=== PATIENT | male | born 1940 | race Caucasian/White ===

== ENCOUNTER 2018-10-18 08:56 | Inpatient (IN) ==
[2018-10-18] MEDS ORDERED: NORMAL SALINE 1,000 ML IV ONE ×3 (09:13→18:53)
[2018-10-18 09:30] LABS: Hematocrit 40.7 % (42.0-52.0); Hemoglobin 12.6 gm/dL (13.5-18.0); Mean Cell Volume 87.9 fl (78-100); Mean Corpuscular Hemoglobin 27.2 pg (27-31); Mean Platelet Volume 8.8 fl (8-11.3); Platelet Count 407 K/mm3 (150-450); Red Blood Count 4.63 M/mm3 (4.7-6.0); Red Cell Distribution Width 14.5 % (11.5-14.0); White Blood Count 27.4 K/mm3 (4.0-10.5)
--- NOTE | 2018-10-18 09:35 | ERNOTE ---
Abdominal HPI - General Chief Complaint: Abdominal Pain Time Seen by Provider: 10/18/18 08:58 Source: patient Exam Limitations: no limitations - Immun/Allergies/Home Medications Immunizatons: IMMUNIZATION HX Immunizations Up to Date Yes History of Influenza Vaccine Yes Hx Pneumococcal Vaccination Yes Allergies/Adverse Reactions: Allergies No Known Allergies Allergy (Verified 10/18/18 09:02) Home Medications: HOME MEDICATIONS albuterol sulfate HFA 90 mcg/actuation aerosol inhaler 2 puff IH Q4H PRN g 09/12/17 [Last Taken Unknown] blood sugar diagnostic strips See Dose Instructions .ROUTE .MEDSUPPLY #20 ea 09/12/17 [Last Taken Unknown] budesonide 0.5 mg/2 mL suspension for nebulization 2 ml IH Q12H 09/12/17 [Last Taken Unknown] furosemide 20 mg tablet 20 mg PO .COMPLEX 09/12/17 [Last Taken Unknown] ipratropium-albuterol 0.5 mg-3 mg(2.5 mg base)/3 mL nebulization soln 3 ml IH .COMPLEX 09/12/17 [Last Taken Unknown] lisinopril 2.5 mg tablet 2.5 mg PO DAILY 09/12/17 [Last Taken Unknown] potassium chloride ER 10 mEq capsule,extended release 10 meq PO .COMPLEX 09/12/17 [Last Taken Unknown] sodium chloride 1 gram tablet 1 tab PO BID tab 09/12/17 [Last Taken Unknown] tiotropium 2.5 mcg-olodaterol 2.5 mcg/actuation mist for inhalation 2 puff IH DAILY 09/12/17 [Last Taken Unknown] Azithromycin [Zithromax Tri-Renan] 500 mg PO MOTUWETHFR 09/25/17 [Last Taken Unknown] Montelukast Sodium [Singulair] 10 mg PO HS 09/25/17 [Last Taken Unknown] omeprazole 40 mg capsule,delayed release 40 mg PO DAILY #90 cap 01/23/18 [Last Taken Unknown] O2 See Dose Instructions .ROUTE .MEDSUPPLY #1 ea 02/15/18 [Last Taken Unknown] albuterol sulfate 2.5 mg/3 mL (0.083 %) solution for nebulization 2.5 mg IH QID 02/15/18 [Last Taken Unknown] cetirizine 10 mg tablet 5 mg PO DAILY 02/15/18 [Last Taken Unknown] ergocalciferol (vitamin D2) 50,000 unit capsule 50,000 unit PO QWEEK cap 02/15/18 [Last Taken Unknown] fluticasone propionate 50 mcg/actuation nasal spray,suspension 1 spray RADHA DAILY PRN #16 g 02/15/18 [Last Taken Unknown] guaifenesin ER 600 mg tablet, extended release 12 hr 1,200 mg PO Q12H PRN tab 02/15/18 [Last Taken Unknown] prednisone 1 mg tablet 2 mg PO DAILY tab 02/15/18 [Last Taken Unknown] prednisone 5 mg tablet 5 mg PO DAILY tab 02/15/18 [Last Taken Unknown] sodium chloride 7 % for nebulization 7 % .ROUTE ml 02/15/18 [Last Taken Unknown] metformin 500 mg tablet 500 mg PO BID #180 tab 02/27/18 [Last Taken Unknown] lancets See Dose Instructions .ROUTE .MEDSUPPLY #200 ea 05/30/18 [Last Taken Unknown] - History of Present Illness Narrative: Patient states that he has had chronic back pain for a while and left flank pain for a couple of weeks. He saw his PCP and had imaging of his back and gallbladder and is wondering about the results. During the night (02:00?) his left flank pain got acutely worse, denies chest pain or shortness of breath, 'just doesn't feel good', light headed and sweaty He has a history of COPD, wears O2 at night only, has not taken any of his morning meds yet Quality: severe, aching, cramping, dullness, sharpness, stabbing, throbbing Activities at Onset: sleep Associated Symptoms: Present: shortness of breath. Absent: fever/chills Prior Treatment: Absent: recently seen, currently on antibiotics Review of Systems - Review of Systems Constitutional: Present: malaise. Absent: recent illness, fever, chills ENT: Absent: nose congestion, nasal drainage, sore throat Respiratory: Absent: shortness of breath, cough Cardiology: Absent: chest pain Gastrointestinal/Abdominal: Present: See HPI, abdominal pain. 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 Cor pulmonale Onset Date: Unknown Diabetes Onset Date: Unknown Type 2 Diverticulosis of colon Onset Date: Unknown Gout Onset Date: Unknown H/O gastroesophageal reflux (GERD) Onset Date: Unknown Hyperlipidemia Onset Date: Unknown Hypertension Onset Date: ~04/2006 Impingement syndrome of left shoulder Onset Date: ~03/2012 Loose body in knee, right knee Onset Date: ~08/2012 Lung nodule Onset Date: Unknown 3mm Obesity Onset Date: Unknown Osteoarthritis Onset Date: Unknown Restless legs Onset Date: ~11/2005 Rotator cuff tear, left Onset Date: ~03/2012 Partial Trochanteric bursitis, unspecified hip Onset Date: 08/29/12 12/15/11 Wheezing Onset Date: 04/21/14 oxygen-dependent Onset Date: Unknown Nocturnal oxygen 3L Surgical History: Surgical History (Updated 09/12/17 @ 11:35 by Susan aLtif RN) Abnormal colonoscopy Onset Date: 08/29/13 Bagan-tubular adenoma & hyperplastic polyp. Diverticulosis, external hemorrhoids. Recheck in 5-10 years. MARISSA Onset Date: 07/13/11 x2 H/O esophagogastroduodenoscopy Onset Date: 08/28/13 Bagan-Clotest negative. Mild chronic gastric inflammation. H/O prostate biopsy Onset Date: Unknown x2-negative History of arthroscopic knee surgery Onset Date: 08/17/12 right-removal of loose body, chondral debridement, [facility] [place] History of arthroscopic surgery of shoulder Onset Date: 05/11/12 Left-debridement of rotator cuff, SAD History of tonsillectomy Onset Date: ~1947 Hx of cataract surgery Onset Date: 01/11/16 right eye Hx of hemorrhoidectomy Onset Date: ~1969 [place] Family History: Family History (Last Reviewed 10/18/18 @ 09:43 by Sindhu Valencia RN) Father Arthritis Myocardial infarction Cancer Prostate Mother , 87 Parkinson's disease Social History: (Last Reviewed 10/18/18 @ 09:43 by Sindhu Valencia RN) Social History: Marital status: Single current occupational status: retired Highest education level completed: 11th grade Service: No Tobacco: Smoking Status: Former smoker how long ago did patient quit smokin Alcohol: alcohol intake: current alcohol intake frequency: 0-2 drinks per day details: use to drink heavily in the past, drinks 2 beers on a daily basis Dietary Habits: caffeine: Yes caffeine comment: occ. Physical Exam - Physical Exam General Appearance: Present: wd/wn, alert, no apparent distress, anxious Head Exam: Present: normal inspection Eye Exam: Normal inspection: bilateral Respiratory: Present: no respiratory distress, lungs clear, decreased breath s ounds, expiration (prolonged) Cardiovascular/Chest: Present: no murmur, tachycardia Gastrointestinal/Abdominal: Present: normal bowel sounds, nondistended, soft, rebound - LLQ. Absent: guarding Back Exam: Present: no vertebral tenderness Extremity Exam: Present: no edema Neurological Exam: Present: alert, oriented, normal mood/affect Skin Exam: Present: normal color, diaphoresis Progress - Results and Orders Patient's Lab Results:: I have reviewed the patient's lab results. - Vital Signs Patient's Vital Signs:: I have reviewed the patient's vital signs. Vital Signs: Vital Signs 10/18/18 08:59 Temperature 36.2 C Pulse Rate 117 H Respiratory Rate 18 Blood Pressure 97/53 O2 Sat by Pulse Oximetry 85 L - EKG EKG #1 EKG: NSR - sinus tachy, nonspecific ST T wave changes EKG read: Interp. by me - X-Ray X-Ray #1 X-Ray: chest - left sided multifocal pneumonia Interpretation: Reviewed by me - CT/Ultrasound CT/Ultrasound Narrative: CTA: IMPRESSION: 1. No aortic pathology detected. 2. Left-sided multifocal pneumonia 3. Additional comments and findings as above - Progress/Reassessment Chief Complaint: Abdominal Pain Progress Note-Subjective: 10/18/18 10:01 discussed code status with patient, patient wants all interventions 'unless I am going to be a vegetable', when asked about CPR ad intubation answers: 'at least once' BP continues to be low in spite of fluids 10/18/18 10:10 discussed CTA with radiologist, no aortic leak, but left sided pneumonia 10/18/18 11:09 blood pressure improved message to Dr Herr 10/18/18 11:16 BP systolic staying over [address] Herr, okay to admit,add vancomycin, cefipime, get ABG 10/18/18 11:20 updated patient on family Departure Clinical Impression: Septic shock Pneumonia Qualifiers: Pneumonia type: due to unspecified organism Laterality: left Lung location: unspecified part of lung Qualified Code(s): J18.9 - Pneumonia, unspecified organism - Departure Disposition: Still a patient Condition: Fair
[2018-10-18 09:47] LABS: ALT 6 U/L (19-67); AST 10 U/L (0-48); Albumin * 3.3 gm/dl (3.4-5.0); Alkaline Phosphatase * 53 U/L (50-170); Amylase * 24 U/L (25-115); Anion Gap 13.2 mmol/L (6.8-13.8); Bilirubin, Total 0.6 mg/dL (0.0-1.1); Blood Urea Nitrogen 13 mg/dL (6-23); Ca. Corrected For Albumin 8.9 mg/dL (8.4-10.2); Calcium * 8.7 mg/dL (7.9-10.9); Carbon Dioxide 28.4 mmol/L (24-32.6); Chloride 99 mmol/L (97-106); Glucose * 168 mg/dL (70-110); Lipase 95 U/L (73-393); Potassium 3.6 mmol/L (3.4-4.6); Sodium 137 mmol/L (132-142); Total Protein 6.1 gm/dL (6.2-8.2); Troponin I Less than 0.017 ng/mL (0.00-0.10)
[2018-10-18 09:53] LABS: Total Cells Counted 100
[2018-10-18 09:56] LABS: Atypical (Reactive) Lymph 1 % (0-2); Band 11 % (0-2.0); Immature Granulocyte 1 (0-1); Lymphocyte 8 % (20-51); Monocyte 1 % (0-9); Neutrophil 78 % (42-75); Neutrophil # 21.4 K/mm3 (1.3-6.0); Platelet Estimate Normal (NORMAL); RBC Morphology Normal (NORMAL)
[2018-10-18] MEDS ORDERED: NOREPINEPHRINE BITARTRATE 4 MG in DEXTROSE 5 % IN WATER 496 ML IV PRN ×2 (10:02)
[2018-10-18] MEDS ORDERED: cefTRIAXone SODIUM 1,000 MG/100 ML BAG IV ONE (10:10)
[2018-10-18] MEDS: NORMAL SALINE 1,000 ML IV PRN ×2 (11:02→12:16)
[2018-10-18] MEDS ORDERED: METHYLPREDNISOLONE SOD SUCC/PF 40 MG/ML VIAL IV ONE (11:14)
[2018-10-18] MEDS ORDERED: CEFEPIME HCL 1 GM/100 ML BAG IV ONE (11:22)
[2018-10-18] MEDS ORDERED: VANCOMYCIN HCL 1 GM in DEXTROSE 5 % IN WATER 250 ML IV ONE ×2 (11:27)
[2018-10-18] MEDS: PANTOPRAZOLE SODIUM 40 MG in NORMAL SALINE 100 ML IV SCH (12:37)
[2018-10-18] MEDS: CEFEPIME HCL 1 GM in DEXTROSE 5 % IN WATER 100 ML IV SCH ×4 (12:40→22:50)
[2018-10-18] MEDS ORDERED: AZITHROMYCIN 250 MG TABLET PO ONE (13:13)
--- NOTE | 2018-10-18 13:13 | HP ---
Chief Complaint - Chief Complaint Date of Service: 10/18/18 Time of Service: 12:27 Chief Complaint: shortness of breath History of Present Illness: Alejandro Diaz is a 78-year-old white male with past medical history of COPD, Hypertension, diabetes mellitus, Tate's esophagus who was admitted on 10/18/2018 because of increasing shortness of breath. The patient woke up early this morning around 2 AM because of shortness of breath and left flank pain associated with shakiness and diaphoresis. 3 weeks ago patient was seen in the office because of low back pain with radiation to his left flank area and x-ray of his lumbosacral spine showed degenerative disc disease with gallbladder stone. An ultrasound of his gallbladder showed no evidence of cholelithiasis or acute cholecystitis. In the emergency room he was found to be hypotensive and hypoxic. He was placed on nasal cannula with 3 L and IV fluid boluses were started. A CT angiogram was done which showed no evidence of aneurysm. His white blood cell count was elevated at 27,000 and his chest x-ray showed multifocal pneumonia left lung field. The patient was given 1 dose of IV Rocephin after blood cultures were sent. I ordered IV cefepime and 1 dose of Vanco for now. Patient was admitted to the floor for further evaluation and treatment. 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 Cor pulmonale Onset Date: Unknown Diabetes Onset Date: Unknown Type 2 Diverticulosis of colon Onset Date: Unknown Gout Onset Date: Unknown H/O gastroesophageal reflux (GERD) Onset Date: Unknown Hyperlipidemia Onset Date: Unknown Hypertension Onset Date: ~04/2006 Impingement syndrome of left shoulder Onset Date: ~03/2012 Loose body in knee, right knee Onset Date: ~08/2012 Lung nodule Onset Date: Unknown 3mm Obesity Onset Date: Unknown Osteoarthritis Onset Date: Unknown Restless legs Onset Date: ~11/2005 Rotator cuff tear, left Onset Date: ~03/2012 Partial Trochanteric bursitis, unspecified hip Onset Date: 08/29/12 12/15/11 Wheezing Onset Date: 04/21/14 oxygen-dependent Onset Date: Unknown Nocturnal oxygen 3L Surgical History: Surgical History (Updated 10/18/18 @ 13:12 by Amanda Herr MD) Abnormal colonoscopy Onset Date: 08/29/13 Bagan-tubular adenoma & hyperplastic polyp. Diverticulosis, external hemorrhoids. Recheck in 5-10 years. MARISSA Onset Date: 07/13/11 x2 H/O esophagogastroduodenoscopy Onset Date: 08/28/13 Bagan-Clotest negative. Mild chronic gastric inflammation. H/O prostate biopsy Onset Date: Unknown x2-negative History of arthroscopic knee surgery Onset Date: 08/17/12 right-removal of loose body, chondral debridement, [facility] History of arthroscopic surgery of shoulder Onset Date: 05/11/12 Left-debridement of rotator cuff, SAD History of tonsillectomy Onset Date: ~1946 Hx of cataract surgery Onset Date: 01/11/16 right eye Hx of hemorrhoidectomy Onset Date: ~1969 [place] Family History: Family History (Last Reviewed 10/18/18 @ 15:10 by Bettye Broderick RN) Father Arthritis Myocardial infarction Cancer Prostate Mother , 87 Parkinson's disease Social History: (Last Reviewed 10/18/18 @ 09:43 by Sindhu Valencia RN) Social History: Marital status: Single current occupational status: retired Highest education level completed: 11th grade Service: No Tobacco: Smoking Status: Former smoker how long ago did patient quit smokin Alcohol: alcohol intake: current alcohol intake frequency: 0-2 drinks per day details: use to drink heavily in the past, drinks 2 beers on a daily basis Dietary Habits: caffeine: Yes caffeine comment: occ. Review Of Systems (GEN) - Review of Systems Generalized/Overall Review: Present: Weakness, Chills, Diaphoresis. Absent: Fever EENTM: Absent: Blurred Vision Respiratory: Present: Shortness of Breath. Absent: Cough, Orthopnea, Wheezing Cardiac: Present: Chest Pain. Absent: Edema, Palpitations Abdominal: Absent: Nausea, Vomiting, Abdominal Pain Genitourinary: Absent: Urgency, Frequency Musculoskeletal: Present: Back Pain. Absent: Joint Pain Neurological: Absent: Headache Skin: Absent: Lesions, Rash Misc: All systems neg except as marked Immunizations: IMMUNIZATION HX Immunizations Up to Date Yes History of Influenza Vaccine Yes Hx Pneumococcal Vaccination Yes Allergies/Adverse Reactions: Allergies Allergy/AdvReac Type Severity Reaction Status Date / Time No Known Allergies Allergy Verified 10/18/18 09:02 Home Medications: HOME MEDICATIONS albuterol sulfate HFA 90 mcg/actuation aerosol inhaler 2 puff IH Q4H PRN g 09/12/17 [Last Taken Unknown] blood sugar diagnostic strips See Dose Instructions .ROUTE .MEDSUPPLY #20 ea 09/12/17 [Last Taken Unknown] budesonide 0.5 mg/2 mL suspension for nebulization 2 ml IH Q12H 09/12/17 [Last Taken Unknown] furosemide 20 mg tablet 20 mg PO Q48H 09/12/17 [Last Taken Unknown] ipratropium-albuterol 0.5 mg-3 mg(2.5 mg base)/3 mL nebulization soln 3 ml IH QID PRN 09/12/17 [Last Taken Unknown] lisinopril 2.5 mg tablet 2.5 mg PO DAILY 09/12/17 [Last Taken Unknown] sodium chloride 1 gram tablet 1 tab PO BID tab 09/12/17 [Last Taken Unknown] tiotropium 2.5 mcg-olodaterol 2.5 mcg/actuation mist for inhalation 2 puff IH DAILY 09/12/17 [Last Taken Unknown] Montelukast Sodium [Singulair] 10 mg PO HS 09/25/17 [Last Taken Unknown] omeprazole 40 mg capsule,delayed release 40 mg PO DAILY #90 cap 01/23/18 [Last Taken Unknown] O2 See Dose Instructions .ROUTE .MEDSUPPLY #1 ea 02/15/18 [Last Taken Unknown] albuterol sulfate 2.5 mg/3 mL (0.083 %) solution for nebulization 2.5 mg IH QID 02/15/18 [Last Taken Unknown] cetirizine 10 mg tablet 10 mg PO DAILY 02/15/18 [Last Taken Unknown] ergocalciferol (vitamin D2) 50,000 unit capsule 50,000 unit PO QWEEK cap 02/15/18 [Last Taken Unknown] fluticasone propionate 50 mcg/actuation nasal spray,suspension 1 spray RADHA DAILY PRN #16 g 02/15/18 [Last Taken Unknown] guaifenesin ER 600 mg tablet, extended release 12 hr 1,200 mg PO Q12H PRN tab 02/15/18 [Last Taken Unknown] prednisone 1 mg tablet 2 mg PO DAILY tab 02/15/18 [Last Taken Unknown] prednisone 5 mg tablet 5 mg PO DAILY tab 02/15/18 [Last Taken Unknown] sodium chloride 7 % for nebulization 4 ml NEB BID ml 02/15/18 [Last Taken Unknown] lancets See Dose Instructions .ROUTE .MEDSUPPLY #200 ea 05/30/18 [Last Taken Unknown] Potassium Chloride [Klor-Con 10] 10 meq PO Q48H 10/18/18 [Last Taken Unknown] metFORMIN HCL [Metformin HCl] 500 mg PO BID 10/18/18 [Last Taken Unknown] Exam - Exam Vital Signs: Vital Signs - Last Taken Temp 36.2 C 10/18/18 08:59 Pulse 115 H 10/18/18 11:00 Resp 25 H 10/18/18 11:00 BP 97/46 10/18/18 11:00 Pulse Ox 100 10/18/18 11:00 Constitutional: Present: Alert, Oriented x3, Cooperative, Mild distress, Elderly ENT Exam: Present: hearing grossly normal Eye Exam: bilateral eye: normal inspection, PERRL, EOMI Neck: Present: supple. Absent: lymphadenopathy (R), lymphadenopathy (L) Respiratory: Present: decreased breath sounds, wheezing - occasional. Absent: crackles, rales Cardiovascular/Chest: Present: regular rate, rhythm, no JVD, no murmur Abdomen: Present: Normal bowel sounds, soft, nontender, nondistended Extremity: Present: no pedal edema, no calf tenderness Diagnostic Studies: Abnormal Lab Results 10/18/18 10/18/18 10/18/18 Range/Units 09:22 09:22 09:22 WBC 27.4 H (4.0-10.5) K/mm3 RBC 4.63 L (4.7-6.0) M/mm3 Hgb 12.6 L (13.5-18.0) gm/dL Hct 40.7 L (42.0-52.0) % MCHC 31.0 L (32-36) g/dl RDW 14.5 H (11.5-14.0) % Neutrophils % (Manual) 78 H (42-75) % Band Neuts % (Manual) 11 H (0-2.0) % Lymphocytes % (Manual) 8 L (20-51) % Neutrophils # (Manual) 21.4 H (1.3-6.0) K/mm3 Base Excess (-2.0-3.0) mmol/L ABG pH (7.35-7.45) Random Glucose 168 H (70-110) mg/dL Lactic Acid, Venous 3.5 H* (0.4-2.0) mmol/L ALT 6 L (19-67) U/L Total Protein 6.1 L (6.2-8.2) gm/dL Albumin 3.3 L (3.4-5.0) gm/dl Amylase 24 L (25-115) U/L 10/18/18 Range/Units 12:13 WBC (4.0-10.5) K/mm3 RBC (4.7-6.0) M/mm3 Hgb (13.5-18.0) gm/dL Hct (42.0-52.0) % MCHC (32-36) g/dl RDW (11.5-14.0) % Neutrophils % (Manual) (42-75) % Band Neuts % (Manual) (0-2.0) % Lymphocytes % (Manual) (20-51) % Neutrophils # (Manual) (1.3-6.0) K/mm3 Base Excess -5.5 L (-2.0-3.0) mmol/L ABG pH 7.28 L (7.35-7.45) Random Glucose (70-110) mg/dL Lactic Acid, Venous (0.4-2.0) mmol/L ALT (19-67) U/L Total Protein (6.2-8.2) gm/dL Albumin (3.4-5.0) gm/dl Amylase (25-115) U/L Laboratory Results WBC 27.4 K/mm3 (4.0-10.5) H 10/18/18 09:22 RBC 4.63 M/mm3 (4.7-6.0) L 10/18/18 09:22 Hgb 12.6 gm/dL (13.5-18.0) L 10/18/18 09:22 Hct 40.7 % (42.0-52.0) L 10/18/18 09:22 MCV 87.9 fl (78-100) 10/18/18 09:22 MCH 27.2 pg (27-31) 10/18/18 09:22 MCHC 31.0 g/dl (32-36) L 10/18/18 09:22 RDW 14.5 % (11.5-14.0) H 10/18/18 09:22 Plt Count 407 K/mm3 (150-450) 10/18/18 09:22 MPV 8.8 fl (8-11.3) 10/18/18 09:22 78 % (42-75) H 10/18/18 09:22 Band Neuts % (Manual) 11 % (0-2.0) H 10/18/18 09:22 8 % (20-51) L 10/18/18 09:22 1 % (0-9) 10/18/18 09:22 1 (0-1) 10/18/18 09:22 21.4 K/mm3 (1.3-6.0) H 10/18/18 09:22 2.2 k/mm3 (1.5-3.5) 10/18/18 09:22 0.3 k/mm3 (0.0-1.0) 10/18/18 09:22 Atypic/Reactive Lymphs 1 % (0-2) 10/18/18 09:22 Normal (NORMAL) 10/18/18 09:22 RBC Morphology Normal (NORMAL) 10/18/18 09:22 pCO2 46.3 mmHg (35.0-48.0) 10/18/18 12:13 pO2 91.2 mmHg (83.0-108.0) 10/18/18 12:13 HCO3 21.2 mmol/L (21.0-28.0) 10/18/18 12:13 Total CO2 22.6 mmol/L (19.0-24.0) 10/18/18 12:13 Base Excess -5.5 mmol/L (-2.0-3.0) L 10/18/18 12:13 ABG pH 7.28 (7.35-7.45) L 10/18/18 12:13 ABG O2 Sat (Measured) 96.0 % (94.0-98.0) 10/18/18 12:13 Sodium 137 mmol/L (132-142) 10/18/18 09:22 138 mmol/L (130-142) 10/18/18 09:22 Potassium 3.6 mmol/L (3.4-4.6) 10/18/18 09:22 Chloride 99 mmol/L (97-106) 10/18/18 09:22 Carbon Dioxide 28.4 mmol/L (24-32.6) 10/18/18 09:22 13.2 mmol/L (6.8-13.8) 10/18/18 09:22 BUN 13 mg/dL (6-23) 10/18/18 09:22 1.18 mg/dL (0.4-1.4) 10/18/18 09:22 Est GFR (Non-Af Amer) 64 mL/min (60-130) D 10/18/18 09:22 11.0 (9.0-21.6) 10/18/18 09:22 168 mg/dL (70-110) H 10/18/18 09:22 3.5 mmol/L (0.4-2.0) H* 10/18/18 09:22 Calcium 8.7 mg/dL (7.9-10.9) 10/18/18 09:22 Calcium Adj for Albumin 8.9 mg/dL (8.4-10.2) 10/18/18 09:22 0.6 mg/dL (0.0-1.1) 10/18/18 09:22 AST 10 U/L (0-48) 10/18/18 09:22 ALT 6 U/L (19-67) L 10/18/18 09:22 53 U/L (50-170) 10/18/18 09:22 Less than 0.017 ng/mL (0.00-0.10) 10/18/18 09:22 6.1 gm/dL (6.2-8.2) L 10/18/18 09:22 3.3 gm/dl (3.4-5.0) L 10/18/18 09:22 Amylase 24 U/L (25-115) L 10/18/18 09:22 95 U/L (73-393) 10/18/18 09:22 Assessment/Plan - Narrative Narrative: We will continue with his IV antibiotics and add macrolide for coverage of atypicals. Will have respiratory therapy do breathing treatments as needed. Continue with oxygen and taper when able to keep oxygen saturation above 88%. We will do DVT prophylaxis and continue his home medications. Will hold his metformin for at least 48 hours as he just had a CT angiogram. - Assessment/Plan (1) Septic shock Assessment: Continue with IV fluids and IV antibiotics. His blood pressure now is in the low 100s. Problem: Acute (2) Pneumonia Assessment: multifocal. Continue with IV cefepime, Vanco and will add azithromycin. if with no improvement , consider aspiration and will change cefepime to meropenem. Problem: Acute Qualifiers: Pneumonia type: due to unspecified organism Laterality: left Lung location: unspecified part of lung Qualified Code(s): J18.9 - Pneumonia, unspecified organism (3) Leukocytosis Assessment: Infectious. Continue with IV antibiotics. Follow-up cultures. Problem: Acute (4) Lactic acidosis Assessment: Likely due to sepsis. Continue IV antibiotics and IV fluids. Problem: Acute (5) Abnormal arterial blood gases Assessment: His ABG showing acute respiratory acidosis with metabolic acidosis. Considering he has lactic acidosis I was expecting more of a high anion gap metabolic acidosis but his anion gap was normal. 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 There is no history of recent diarrhea on his history and physical. If we want to pursue this further we will need to order for a urine for anion gap . Problem: Acute (6) Chronic obstructive lung disease Assessment: Continue with his inhalers. Problem: Chronic (7) Low back pain Problem: Chronic (8) Barretts esophagus Problem: Chronic Qualifiers: (9) Hyperlipidemia Problem: Chronic Qualifiers: (10) Diabetes mellitus Problem: Chronic Qualifiers:
[2018-10-18 13:38] LABS: Urine Bilirubin Negative (NEGATIVE); Urine Blood Negative /ul (NEGATIVE); Urine Ketone Negative (NEGATIVE); Urine Nitrite Negative (NEGATIVE); Urine Protein Negative (NEGATIVE); Urine Specific Gravity <=1.005 SP.GR. (1.005-1.030); Urine Urobilinogen Normal (NORMAL)
[2018-10-18 13:44] LABS: Urine Appearance Clear (CLEAR); Urine Bacteria None Seen; Urine Color Yellow; Urine RBC None Seen /hpf (0-5); Urine WBC None Seen /hpf (0-5)
[2018-10-18 13:54] LABS: Cocaine Ur Negative (NEGATIVE); Urine Barbiturate Negative (NEGATIVE); Urine Benzodiazepines Negative (NEGATIVE); Urine Opiates Negative (NEGATIVE); Urine PCP Negative (NEGATIVE); Urine THC Negative (NEGATIVE)
[2018-10-18] MEDS: VANCOMYCIN HCL 1 GM in DEXTROSE 5 % IN WATER 250 ML IV SCH ×4 (13:58→23:54)
[2018-10-18] MEDS: ACETAMINOPHEN 325 MG TABLET PO PRN ×2 (14:08→18:22)
[2018-10-18] MEDS: ALBUTEROL SULFATE/IPRATROPIUM 3 ML NEBU IH SCH ×2 (14:11→18:05)
[2018-10-18] MEDS: BUDESONIDE 0.5 MG/2 ML VIAL.NEB IH SCH ×2 (14:13→18:06)
[2018-10-18] MEDS ORDERED: NON-FORMULARY 1 DOSE DOSE (Albuterol Sulfate 2.5 MG) IH SCH (17:00)
[2018-10-18] MEDS: ENOXAPARIN SODIUM 40 MG/0.4 ML SYRG SC SCH (17:01)
[2018-10-18] MEDS: INSULIN LISPRO 100 UNITS/ML VIAL SC SCH ×2 (17:04→20:24)
[2018-10-18] MEDS: INSULIN GLARGINE,HUM.REC.ANLOG 100 UNITS/ML VIAL SC SCH (20:26)
[2018-10-18] MEDS: MONTELUKAST SODIUM 10 MG TABLET PO SCH (20:28)
[2018-10-18] MEDS: SACCHAROMYCES BOULARDII 250 MG CAPSULE PO SCH (20:28)
[2018-10-19] MEDS: ACETAMINOPHEN 325 MG TABLET PO PRN ×3 (00:06→23:36)
[2018-10-19] MEDS: NORMAL SALINE 1,000 ML IV PRN ×3 (03:03→22:44)
[2018-10-19] MEDS: FLUTICASONE PROPIONATE 120 SPRAY INHALER NS PRN (03:09)
[2018-10-19 05:32] LABS: Hemoglobin 9.8 gm/dL (13.5-18.0); Mean Cell Volume 88.1 fl (78-100); Mean Corpuscular Hemoglobin 27.8 pg (27-31); Mean Corpuscular Hgb Conc 31.6 g/dl (32-36); Mean Platelet Volume 8.9 fl (8-11.3); Platelet Count 291 K/mm3 (150-450); Red Blood Count 3.52 M/mm3 (4.7-6.0); Red Cell Distribution Width 14.7 % (11.5-14.0); White Blood Count 27.2 K/mm3 (4.0-10.5)
[2018-10-19 05:36] LABS: Total Cells Counted 100
[2018-10-19 05:39] LABS: Anion Gap 13.3 mmol/L (6.8-13.8); BUN/Creatinine Ratio 15.9 (9.0-21.6); Calcium * 7.8 mg/dL (7.9-10.9); Carbon Dioxide 25.9 mmol/L (24-32.6); Estimated Creat Clear 63.4; Potassium 4.2 mmol/L (3.4-4.6)
[2018-10-19 05:56] LABS: Band 5 % (0-2.0); Immature Granulocyte 2 (0-1); Lymphocyte 3 % (20-51); Monocyte 2 % (0-9); Neutrophil 88 % (42-75); Neutrophil # 23.9 K/mm3 (1.3-6.0); Platelet Estimate Normal (NORMAL); RBC Morphology Normal (NORMAL)
[2018-10-19] MEDS: ALBUTEROL SULFATE/IPRATROPIUM 3 ML NEBU IH SCH ×4 (06:01→18:05)
[2018-10-19] MEDS: BUDESONIDE 0.5 MG/2 ML VIAL.NEB IH SCH ×2 (06:08→18:05)
[2018-10-19] MEDS: INSULIN LISPRO 100 UNITS/ML VIAL SC SCH ×4 (07:04→20:54)
--- NOTE | 2018-10-19 08:34 | PN ---
Subjective - Date and Time Seen Date: 10/19/18 Time: 08:23 Subjective Narrative: patient says he feels beter than yesterday. WBC down to 27.2 from 27.4 but clinically feeling better. afebrile Tmax 37. Objective - Review of Systems Generalized/Overall Review: Reports: Weight gain. Denies: Chills, Fever EENTM: Denies: Blurred Vision, Throat Swelling Respiratory: Reports: Cough, Shortness of Breath, Wheezing Cardiac: Reports: Chest Pain - with deep breathing/coughing Abdominal: Denies: Nausea, Vomiting, Abdominal Pain Genitourinary Symptoms: Denies: Urgency, Frequency Musculoskeletal Complaints: Reports: Back Pain. Denies: Joint Pain Neurological: Denies: Headache Skin: Denies: Lesions, Rash Endocrine: Denies: Intolerance to Cold, Intolerance to Heat Misc: All systems neg except as marked - Vitals Vitals: Last Vital Signs Temp 36.8 C 10/19/18 06:29 Pulse 85 10/19/18 06:29 Resp 16 10/19/18 06:29 BP 114/49 10/19/18 06:29 Pulse Ox 94 10/19/18 06:29 - Abnormal Lab Findings Abnormal Lab Findings: Abnormal Lab Results 10/18/18 10/18/18 10/18/18 Range/Units 09:22 09:22 09:22 WBC 27.4 H (4.0-10.5) K/mm3 RBC 4.63 L (4.7-6.0) M/mm3 Hgb 12.6 L (13.5-18.0) gm/dL Hct 40.7 L (42.0-52.0) % MCHC 31.0 L (32-36) g/dl RDW 14.5 H (11.5-14.0) % Neutrophils % (Manual) 78 H (42-75) % Band Neuts % (Manual) 11 H (0-2.0) % Lymphocytes % (Manual) 8 L (20-51) % Immature Granulocytes (0-1) Neutrophils # (Manual) 21.4 H (1.3-6.0) K/mm3 Lymphocytes # (Manual) (1.5-3.5) k/mm3 Base Excess (-2.0-3.0) mmol/L ABG pH (7.35-7.45) Random Glucose 168 H (70-110) mg/dL Lactic Acid, Venous 3.5 H* (0.4-2.0) mmol/L Calcium (7.9-10.9) mg/dL ALT 6 L (19-67) U/L Total Protein 6.1 L (6.2-8.2) gm/dL Albumin 3.3 L (3.4-5.0) gm/dl Amylase 24 L (25-115) U/L 10/18/18 10/18/18 10/19/18 Range/Units 12: 12: 05:10 WBC 27.2 H (4.0-10.5) K/mm3 RBC 3.52 L (4.7-6.0) M/mm3 Hgb 9.8 L (13.5-18.0) gm/dL Hct 31.0 L (42.0-52.0) % MCHC 31.6 L (32-36) g/dl RDW 14.7 H (11.5-14.0) % Neutrophils % (Manual) 88 H (42-75) % Band Neuts % (Manual) 5 H (0-2.0) % Lymphocytes % (Manual) 3 L (20-51) % Immature Granulocytes 2 H (0-1) Neutrophils # (Manual) 23.9 H (1.3-6.0) K/mm3 Lymphocytes # (Manual) 0.8 L (1.5-3.5) k/mm3 Base Excess -5.5 L (-2.0-3.0) mmol/L ABG pH 7.28 L (7.35-7.45) Random Glucose (70-110) mg/dL Lactic Acid, Venous 4.4 H* (0.4-2.0) mmol/L Calcium (7.9-10.9) mg/dL ALT (19-67) U/L Total Protein (6.2-8.2) gm/dL Albumin (3.4-5.0) gm/dl Amylase (25-115) U/L 10/19/18 Range/Units 05:10 WBC (4.0-10.5) K/mm3 RBC (4.7-6.0) M/mm3 Hgb (13.5-18.0) gm/dL Hct (42.0-52.0) % MCHC (32-36) g/dl RDW (11.5-14.0) % Neutrophils % (Manual) (42-75) % Band Neuts % (Manual) (0-2.0) % Lymphocytes % (Manual) (20-51) % Immature Granulocytes (0-1) Neutrophils # (Manual) (1.3-6.0) K/mm3 Lymphocytes # (Manual) (1.5-3.5) k/mm3 Base Excess (-2.0-3.0) mmol/L ABG pH (7.35-7.45) Random Glucose 120 H (70-110) mg/dL Lactic Acid, Venous (0.4-2.0) mmol/L Calcium 7.8 L (7.9-10.9) mg/dL ALT (19-67) U/L Total Protein (6.2-8.2) gm/dL Albumin (3.4-5.0) gm/dl Amylase (25-115) U/L - Exam Constitutional: Present: Alert, Oriented x3, Cooperative ENT Exam: Present: hearing grossly normal Neck: Present: supple Respiratory: Present: decreased breath sounds, crackles, wheezing - occasional Cardiovascular/Chest: Present: regular rate, rhythm, no JVD, no murmur Abdomen: Present: Normal bowel sounds, soft, nontender, nondistended Extremity: Present: no pedal edema, no calf tenderness Assessment/Plan - Problems/Diagnosis (1) Pneumonia Problem: Acute Qualifiers: Pneumonia type: due to unspecified organism Laterality: left Lung location: unspecified part of lung Qualified Code(s): J18.9 - Pneumonia, unspecified organism Narrative: multifocal , left with left pleurisy. continue with IV antibiotics. although WBC did not siginificantly change, he is clinically better . he is on RA now but he uses O2 at night for his baseline, RR 16. (2) Septic shock Problem: Resolved Narrative: BP int he 110's-120's. (3) Leukocytosis Problem: Acute Narrative: not significantly changed. day 2 of antibiotics todays. if no improvement , may consider changing cefepime to meropenem or Zosyn to cover for anaerobes in wing he had aspiration. (4) Lactic acidosis Problem: Acute Narrative: will recheck today. addendum: repeat LA is 3.3. slightly improved. continue with IV antibiotics and IVF. recheck in a.m. metformin has been on hold ever since CTA. (5) Abnormal arterial blood gases Problem: Acute Narrative: I made a mistake of getting his HCO3 level from his ABG rather form his venous blood draw. He has acute respiratory acidosis with mild metabolic alkalosis likely post -hypercapneic respiratory failure r/o diuretic induced. he had lactic acidosis but has a normal Anion Gap. (6) Chronic obstructive lung disease Problem: Chronic (7) Low back pain Problem: Chronic (8) Barretts esophagus Problem: Chronic Qualifiers: (9) Hyperlipidemia Problem: Chronic Qualifiers: (10) Diabetes mellitus Problem: Chronic Qualifiers: Narrative: Metformin on hold. on Lantus and Humalog now adn will keep on it until discharge and restart Metformin. (11) Anemia Problem: Acute Narrative: acute on chronic. will do anemia work up and stool for occult blood. could also be dilutional.
[2018-10-19] MEDS ORDERED: predniSONE 5 MG TABLET PO SCH (09:00)
[2018-10-19 09:08] LABS: Iron 11 mcg/dL (35-120); Transferrin Sat. (% Sat.) 4 % (15-55)
[2018-10-19] MEDS: LORATADINE 10 MG TABLET PO SCH (09:20)
[2018-10-19] MEDS: predniSONE 10 MG TABLET PO SCH (09:20)
[2018-10-19] MEDS: SACCHAROMYCES BOULARDII 250 MG CAPSULE PO SCH ×2 (09:20→20:54)
[2018-10-19 09:32] LABS: Folate 5.1 ng/mL (8.6-58.9)
[2018-10-19] MEDS: FERROUS SULFATE 325 MG TABLET PO SCH (10:08)
[2018-10-19] MEDS: FOLIC ACID 1 MG TABLET PO SCH (10:08)
[2018-10-19] MEDS: PANTOPRAZOLE SODIUM 40 MG in NORMAL SALINE 100 ML IV SCH (11:12)
[2018-10-19] MEDS ORDERED: CEFEPIME HCL 1 GM in DEXTROSE 5 % IN WATER 100 ML IV SCH ×2 (11:30)
[2018-10-19] MEDS: CEFEPIME HCL 1 GM in DEXTROSE 5 % IN WATER 100 ML IV SCH ×4 (11:44→22:45)
[2018-10-19] MEDS: VANCOMYCIN HCL 1 GM in DEXTROSE 5 % IN WATER 250 ML IV SCH ×4 (12:56→23:33)
[2018-10-19] MEDS: AZITHROMYCIN 250 MG TABLET PO SCH (13:01)
[2018-10-19] MEDS: ENOXAPARIN SODIUM 40 MG/0.4 ML SYRG SC SCH (16:43)
[2018-10-19] MEDS: INSULIN GLARGINE,HUM.REC.ANLOG 100 UNITS/ML VIAL SC SCH (20:55)
[2018-10-19] MEDS: MONTELUKAST SODIUM 10 MG TABLET PO SCH (20:55)
[2018-10-20] MEDS: ALBUTEROL SULFATE 2.5 MG/0.5 ML VIAL.NEB IH PRN ×2 (03:55→14:02)
[2018-10-20] MEDS: BUDESONIDE 0.5 MG/2 ML VIAL.NEB IH SCH ×2 (05:59→18:00)
[2018-10-20 06:00] LABS: Anion Gap 11.2 mmol/L (6.8-13.8); BUN/Creatinine Ratio 11.3 (9.0-21.6); Calcium * 8.5 mg/dL (7.9-10.9); Carbon Dioxide 25.7 mmol/L (24-32.6); Estimated Creat Clear 69.8; Potassium 3.9 mmol/L (3.4-4.6)
[2018-10-20] MEDS: ALBUTEROL SULFATE/IPRATROPIUM 3 ML NEBU IH SCH ×4 (06:00→18:00)
[2018-10-20 06:01] LABS: Hematocrit 30.7 % (42.0-52.0); Hemoglobin 9.5 gm/dL (13.5-18.0); Mean Corpuscular Hemoglobin 27.2 pg (27-31); Mean Corpuscular Hgb Conc 30.9 g/dl (32-36); Mean Platelet Volume 8.9 fl (8-11.3); Neutrophil # 14.9 K/mm3 (1.3-6.0); Neutrophil % 86.7 % (42-75.0); Platelet Count 309 K/mm3 (150-450); Red Blood Count 3.49 M/mm3 (4.7-6.0); Red Cell Distribution Width 15.3 % (11.5-14.0); White Blood Count 17.2 K/mm3 (4.0-10.5)
[2018-10-20] MEDS: INSULIN LISPRO 100 UNITS/ML VIAL SC SCH ×4 (06:32→20:50)
[2018-10-20] MEDS: FERROUS SULFATE 325 MG TABLET PO SCH (08:16)
[2018-10-20] MEDS: LORATADINE 10 MG TABLET PO SCH (08:16)
[2018-10-20] MEDS: FOLIC ACID 1 MG TABLET PO SCH (08:17)
[2018-10-20] MEDS: predniSONE 10 MG TABLET PO SCH (08:17)
[2018-10-20] MEDS: SACCHAROMYCES BOULARDII 250 MG CAPSULE PO SCH ×2 (08:17→20:46)
[2018-10-20] MEDS: NORMAL SALINE 1,000 ML IV PRN ×2 (10:10→21:27)
[2018-10-20] MEDS: PANTOPRAZOLE SODIUM 40 MG in NORMAL SALINE 100 ML IV SCH (10:45)
[2018-10-20] MEDS: ACETAMINOPHEN 325 MG TABLET PO PRN ×2 (10:45→21:31)
[2018-10-20] MEDS: CEFEPIME HCL 1 GM in DEXTROSE 5 % IN WATER 100 ML IV SCH ×4 (11:07→23:24)
--- NOTE | 2018-10-20 11:33 | PN ---
Subjective - Date and Time Seen Date: 10/20/18 Time: 11:13 Subjective Narrative: 78-year-old male admitted for left-sided multifocal pneumonia was evaluated at bedside and was found to be afebrile in no acute distress. Patient has been treated with IV antibiotics and IV hydration since arriving at our facility and is responding well to the treatment. Leukocytosis has improved with a white count has decreased to 17 and there has not been any recurrence of fever and patient was successfully weaned off of oxygen and maintains adequate oxygen saturation on room air. During today's evaluation he reports feeling stronger and denies any worsening of his shortness of breath and says his only complaint is persistent productive cough of yellowish to clear sputum which we expect with his pneumonia. He also complains of residual soreness of his left lower back/flank likely secondary to his left lower lobe pneumonia and the persistent coughing, we will give him something for pain for this. In the meantime we will continue with IV antibiotics and repeat labs in the morning. Objective - Review of Systems Generalized/Overall Review: Reports: No Symptoms Reported EENTM: Reports: No Symptoms Reported Respiratory: Reports: Cough, Shortness of Breath Cardiac: Reports: No Symptoms Reported Abdominal: Reports: No Symptoms Reported Genitourinary Symptoms: Reports: No Symptoms Reported Musculoskeletal Complaints: Reports: Back Pain - Left lower back/flank soreness Neurological: Reports: No Symptoms Reported Skin: Reports: No Symptoms Reported Endocrine: Reports: No Symptoms Reported - Vitals Vitals: Last Vital Signs Temp 36.9 C 10/20/18 08:03 Pulse 82 10/20/18 10:04 Resp 24 H 10/20/18 10:04 BP 150/63 H 10/20/18 08:03 Pulse Ox 97 10/20/18 10:04 - Abnormal Lab Findings Abnormal Lab Findings: Abnormal Lab Results 10/20/18 10/20/18 Range/Units 05:53 05:53 WBC 17.2 H D (4.0-10.5) K/mm3 RBC 3.49 L (4.7-6.0) M/mm3 Hgb 9.5 L (13.5-18.0) gm/dL Hct 30.7 L (42.0-52.0) % MCHC 30.9 L (32-36) g/dl RDW 15.3 H (11.5-14.0) % Immature Gran % (Auto) 0.50 H (0.001-0.429) % Immature Gran # (Auto) 0.09 H (0.000-0.0310) K/mm3 Neutrophils % 86.7 H (42-75.0) % Lymphocytes % 5.7 L (20-51) % Neutrophils # 14.9 H (1.3-6.0) K/mm3 Lymphocytes # 0.97 L (1.5-3.5) k/mm3 Random Glucose 133 H (70-110) mg/dL - Exam Constitutional: Present: Alert, Oriented x3, Cooperative, Well developed, Well nourished, No distress, Elderly ENT Exam: Present: normal ENT inspection, hearing grossly normal, pharynx normal, TMs normal Neck: Present: non-tender, full range of motion, supple, normal inspection, trachea midline Breasts: Present: Exam deferred Respiratory: Present: chest non-tender, no respiratory distress, no accessory muscle use, decreased breath sounds, wheezing - Expiratory wheezing at left [place]. 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 steroids, and reevaluate in the morning with labs was made. We will continue to monitor patient closely.
[2018-10-20] MEDS: VANCOMYCIN HCL 1 GM in DEXTROSE 5 % IN WATER 250 ML IV SCH ×2 (11:46)
[2018-10-20] MEDS: AZITHROMYCIN 250 MG TABLET PO SCH (12:50)
[2018-10-20] MEDS ORDERED: VANCOMYCIN HCL LEVEL XX ONE (13:30)
[2018-10-20] MEDS: ENOXAPARIN SODIUM 40 MG/0.4 ML SYRG SC SCH (15:13)
[2018-10-20] MEDS: MONTELUKAST SODIUM 10 MG TABLET PO SCH (20:47)
[2018-10-20] MEDS: INSULIN GLARGINE,HUM.REC.ANLOG 100 UNITS/ML VIAL SC SCH (20:51)
[2018-10-20] MEDS: DOCUSATE SODIUM 100 MG CAPSULE PO SCH (20:56)
[2018-10-21] MEDS: VANCOMYCIN HCL 1 GM in DEXTROSE 5 % IN WATER 250 ML IV SCH ×4 (00:11→11:53)
[2018-10-21] MEDS: ALBUTEROL SULFATE 2.5 MG/0.5 ML VIAL.NEB IH PRN (01:27)
[2018-10-21] MEDS: ALBUTEROL SULFATE/IPRATROPIUM 3 ML NEBU IH SCH ×6 (05:28→18:05)
[2018-10-21] MEDS: BUDESONIDE 0.5 MG/2 ML VIAL.NEB IH SCH ×3 (05:29→18:05)
[2018-10-21] MEDS: INSULIN LISPRO 100 UNITS/ML VIAL SC SCH ×4 (06:45→20:35)
[2018-10-21 07:07] LABS: Hematocrit 31.5 % (42.0-52.0); Hemoglobin 9.9 gm/dL (13.5-18.0); Mean Cell Volume 87.5 fl (78-100); Mean Corpuscular Hemoglobin 27.5 pg (27-31); Mean Corpuscular Hgb Conc 31.4 g/dl (32-36); Mean Platelet Volume 8.6 fl (8-11.3); Neutrophil # 11.9 K/mm3 (1.3-6.0); Neutrophil % 83.3 % (42-75.0); Platelet Count 318 K/mm3 (150-450); Red Cell Distribution Width 15.2 % (11.5-14.0); White Blood Count 14.3 K/mm3 (4.0-10.5)
[2018-10-21 07:22] LABS: Albumin * 2.7 gm/dl (3.4-5.0); Anion Gap 12.8 mmol/L (6.8-13.8); BUN/Creatinine Ratio 9.6 (9.0-21.6); Bilirubin, Total 0.6 mg/dL (0.0-1.1); Ca. Corrected For Albumin 9.8 mg/dL (8.4-10.2); Calcium * 9.1 mg/dL (7.9-10.9); Carbon Dioxide 27.9 mmol/L (24-32.6); Potassium 3.7 mmol/L (3.4-4.6); Total Protein 6.1 gm/dL (6.2-8.2)
[2018-10-21] MEDS: NORMAL SALINE 1,000 ML IV PRN (08:28)
[2018-10-21] MEDS: LORATADINE 10 MG TABLET PO SCH (08:29)
[2018-10-21] MEDS: SACCHAROMYCES BOULARDII 250 MG CAPSULE PO SCH ×2 (08:29→20:28)
[2018-10-21] MEDS: FERROUS SULFATE 325 MG TABLET PO SCH (08:29)
[2018-10-21] MEDS: predniSONE 10 MG TABLET PO SCH (08:29)
[2018-10-21] MEDS: FOLIC ACID 1 MG TABLET PO SCH (08:29)
[2018-10-21] MEDS: ACETAMINOPHEN 325 MG TABLET PO PRN (10:28)
[2018-10-21] MEDS: PANTOPRAZOLE SODIUM 40 MG in NORMAL SALINE 100 ML IV SCH (10:29)
[2018-10-21] MEDS: CEFEPIME HCL 1 GM in DEXTROSE 5 % IN WATER 100 ML IV SCH ×4 (10:53→22:45)
[2018-10-21] MEDS: AZITHROMYCIN 250 MG TABLET PO SCH (13:07)
--- NOTE | 2018-10-21 13:34 | PN ---
Subjective - Date and Time Seen Date: 10/21/18 Time: 13:29 Subjective Narrative: I feel much better but still have a cough, I also had shortness of breath this morning that resolved with breathing treatments Objective Objective Narrative: 78-year-old male admitted for left lower lobe pneumonia was evaluated at bedside was found to be afebrile and in no acute distress. Patient reports feeling better this morning and leukocytosis is resolving in response to IV antibiotics. He reports shortness of breath this morning that resolved after he was treated with breathing treatments, since then his only complaint is mild persistent productive cough. Patient also reports improvement of his left flank pain ever since his pneumonia has been receiving treatment. There has been no recurrence of fever and patient is maintaining adequate oxygen saturation. - Review of Systems Generalized/Overall Review: Reports: No Symptoms Reported EENTM: Reports: No Symptoms Reported Respiratory: Reports: Cough, Shortness of Breath Cardiac: Reports: No Symptoms Reported Abdominal: Reports: No Symptoms Reported Genitourinary Symptoms: Reports: No Symptoms Reported Musculoskeletal Complaints: Reports: No Symptoms Reported Neurological: Reports: No Symptoms Reported Skin: Reports: No Symptoms Reported Endocrine: Reports: No Symptoms Reported - Vitals Vitals: Last Vital Signs Temp 37.0 C 10/21/18 11:25 Pulse 94 10/21/18 11:25 Resp 20 10/21/18 11:25 BP 134/68 10/21/18 11:25 Pulse Ox 94 10/21/18 11:25 - Abnormal Lab Findings Abnormal Lab Findings: Abnormal Lab Results 10/20/18 10/21/18 10/21/18 Range/Units 13:27 07:03 07:03 WBC 14.3 H (4.0-10.5) K/mm3 RBC 3.60 L (4.7-6.0) M/mm3 Hgb 9.9 L (13.5-18.0) gm/dL Hct 31.5 L (42.0-52.0) % MCHC 31.4 L (32-36) g/dl RDW 15.2 H (11.5-14.0) % Immature Gran % (Auto) 0.60 H (0.001-0.429) % Immature Gran # (Auto) 0.08 H (0.000-0.0310) K/mm3 Neutrophils % 83.3 H (42-75.0) % Lymphocytes % 5.9 L (20-51) % Neutrophils # 11.9 H (1.3-6.0) K/mm3 Lymphocytes # 0.84 L (1.5-3.5) k/mm3 Monocytes # 1.1 H (0.0-1.0) k/mm3 Random Glucose 117 H (70-110) mg/dL ALT 7 L (19-67) U/L Total Protein 6.1 L (6.2-8.2) gm/dL Albumin 2.7 L (3.4-5.0) gm/dl Vancomycin Trough 37.1 H (10.0-20.0) mcg/mL - Exam Constitutional: Present: Alert, Oriented x3, Cooperative, Well developed, Well nourished, No distress, Elderly ENT Exam: Present: normal ENT inspection, hearing grossly normal, pharynx normal, TMs normal Neck: Present: non-tender, full range of motion, supple, normal inspection, trachea midline Breasts: Present: Exam deferred Respiratory: Present: chest non-tender, lungs clear, normal breath sounds, no respiratory distress, no accessory muscle use Cardiovascular/Chest: Present: normal peripheral pulses, regular rate, rhythm, no chest tenderness, no edema, no gallop, no JVD, no murmur, no rub Abdomen: Present: Normal bowel sounds, soft, nontender, nondistended, no rebound tenderness, no hepatospenomegaly, no masses, obese Extremity: Present: normal range of motion, non-tender, normal inspection, no pedal edema, no calf tenderness, normal capillary refill Skin Exam: Present: normal color, warm/dry, no cyanosis Lymphatic: Present: no adenopathy Neurologic: Present: assistant cook II-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 Patient will be handed over to his regular doctor in the morning.
[2018-10-21] MEDS: ENOXAPARIN SODIUM 40 MG/0.4 ML SYRG SC SCH (15:05)
[2018-10-21] MEDS: DOCUSATE SODIUM 100 MG CAPSULE PO SCH (20:28)
[2018-10-21] MEDS: INSULIN GLARGINE,HUM.REC.ANLOG 100 UNITS/ML VIAL SC SCH (20:29)
[2018-10-21] MEDS: MONTELUKAST SODIUM 10 MG TABLET PO SCH (20:36)
[2018-10-22] MEDS: VANCOMYCIN HCL 1 GM in DEXTROSE 5 % IN WATER 250 ML IV SCH ×4 (00:47→12:59)
[2018-10-22] MEDS: ALBUTEROL SULFATE/IPRATROPIUM 3 ML NEBU IH SCH ×2 (05:20→06:41)
[2018-10-22] MEDS: BUDESONIDE 0.5 MG/2 ML VIAL.NEB IH SCH ×3 (05:21→18:02)
[2018-10-22] MEDS: INSULIN LISPRO 100 UNITS/ML VIAL SC SCH ×4 (06:45→22:04)
[2018-10-22 07:03] LABS: Hematocrit 31.2 % (42.0-52.0); Hemoglobin 9.9 gm/dL (13.5-18.0); Mean Cell Volume 87.6 fl (78-100); Mean Corpuscular Hemoglobin 27.8 pg (27-31); Mean Corpuscular Hgb Conc 31.7 g/dl (32-36); Mean Platelet Volume 9.1 fl (8-11.3); Neutrophil # 8.9 K/mm3 (1.3-6.0); Neutrophil % 75.9 % (42-75.0); Platelet Count 360 K/mm3 (150-450); Red Blood Count 3.56 M/mm3 (4.7-6.0); Red Cell Distribution Width 15.4 % (11.5-14.0); White Blood Count 11.7 K/mm3 (4.0-10.5)
[2018-10-22] MEDS: NORMAL SALINE 1,000 ML IV PRN (07:10)
[2018-10-22] MEDS ORDERED: ALBUTEROL SULFATE/IPRATROPIUM 3 ML NEBU IH PRN (08:29)
[2018-10-22] MEDS: ACETAMINOPHEN 325 MG TABLET PO PRN (08:29)
[2018-10-22] MEDS: FERROUS SULFATE 325 MG TABLET PO SCH (08:32)
[2018-10-22] MEDS: LORATADINE 10 MG TABLET PO SCH (08:32)
[2018-10-22] MEDS: SACCHAROMYCES BOULARDII 250 MG CAPSULE PO SCH ×2 (08:33→22:03)
[2018-10-22] MEDS: FOLIC ACID 1 MG TABLET PO SCH (08:33)
[2018-10-22] MEDS: predniSONE 10 MG TABLET PO SCH (08:33)
[2018-10-22] MEDS ORDERED: FUROSEMIDE 10 MG/ML VIAL IV ONE (08:33)
[2018-10-22] MEDS: FLUTICASONE PROPIONATE 120 SPRAY INHALER NS PRN (08:34)
[2018-10-22] MEDS ORDERED: FUROSEMIDE 20 MG TABLET PO SCH (08:45)
[2018-10-22] MEDS ORDERED: POTASSIUM CHLORIDE 10 MEQ TABLET.SA PO SCH (09:00)
[2018-10-22] MEDS ORDERED: NON-FORMULARY 1 DOSE DOSE (Tiotropium Br/Olodaterol Hcl [Stiolto Respimat Inhal Spray] 2 P IH SCH (09:00)
[2018-10-22] MEDS ORDERED: FORMOTEROL FUMARATE 20 MCG/2 ML VIAL IH SCH (09:00)
[2018-10-22] MEDS: TIOTROPIUM BROMIDE 5 CAP INHALER IH SCH (09:23)
[2018-10-22] MEDS: PANTOPRAZOLE SODIUM 40 MG in NORMAL SALINE 100 ML IV SCH (11:01)
[2018-10-22] MEDS ORDERED: VANCOMYCIN HCL LEVEL XX ONE (11:30)
[2018-10-22] MEDS: CEFEPIME HCL 1 GM in DEXTROSE 5 % IN WATER 100 ML IV SCH ×4 (11:44→23:45)
[2018-10-22] MEDS: AZITHROMYCIN 250 MG TABLET PO SCH (13:00)
--- NOTE | 2018-10-22 13:27 | PN ---
Subjective - Date and Time Seen Date: 10/22/18 Time: 13:18 - \ Subjective Narrative: Patient not feeling well this morning- SOB, with wheezing and crackles. RR 24/HR 106. Objective - Review of Systems Generalized/Overall Review: Denies: Weakness, Chills, Fever EENTM: Denies: Blurred Vision Respiratory: Reports: Wheezing. Denies: Cough, Shortness of Breath Cardiac: Reports: Edema. Denies: Chest Pain, Palpitations Abdominal: Denies: Nausea, Vomiting Genitourinary Symptoms: Denies: Urgency, Frequency Musculoskeletal Complaints: Denies: Joint Pain Neurological: Reports: Depressed. Denies: Headache Skin: Denies: Lesions, Rash Endocrine: Denies: Intolerance to Cold, Intolerance to Heat Misc: All systems neg except as marked - Vitals Vitals: Last Vital Signs Temp 36.9 C 10/22/18 10:37 Pulse 117 H 10/22/18 10:37 Resp 24 H 10/22/18 10:37 BP 137/73 10/22/18 10:37 Pulse Ox 95 10/22/18 10:37 - Abnormal Lab Findings Abnormal Lab Findings: Abnormal Lab Results 10/22/18 Range/Units 06:50 WBC 11.7 H (4.0-10.5) K/mm3 RBC 3.56 L (4.7-6.0) M/mm3 Hgb 9.9 L (13.5-18.0) gm/dL Hct 31.2 L (42.0-52.0) % MCHC 31.7 L (32-36) g/dl RDW 15.4 H (11.5-14.0) % Immature Gran % (Auto) 1.00 H (0.001-0.429) % Immature Gran # (Auto) 0.12 H (0.000-0.0310) K/mm3 Neutrophils % 75.9 H (42-75.0) % Lymphocytes % 8.6 L (20-51) % Monocytes % 11.2 H (0.0-9) % Neutrophils # 8.9 H (1.3-6.0) K/mm3 Lymphocytes # 1.00 L (1.5-3.5) k/mm3 Monocytes # 1.3 H (0.0-1.0) k/mm3 - Exam Constitutional: Present: Alert, Oriented x3, Cooperative ENT Exam: Present: hearing grossly normal Neck: Present: supple. Absent: limited range of motion, lymphadenopathy (R) Respiratory: Present: decreased breath sounds, rales, wheezing Abdomen: Present: Normal bowel sounds, soft, nontender, nondistended Extremity: Present: no calf tenderness, lower extremity edema Assessment/Plan Plan Narrative: SOB/rales likely due to fluid overload. will stop his IVF, give IV lasix and restart his home oral lasix. His tachycardia/tachypnea likely due to fluid overload. will also stop his RTC dueoneb and just keep it PRN and restart his LABA/LAMA. will get a CXR today. WBC continues to go down and will likely discharge him in a.m on oral Levaqin 750 mg PO qd. - Problems/Diagnosis (1) Fluid overload Problem: Acute (2) Pneumonia Problem: Acute Qualifiers: Pneumonia type: due to unspecified organism Laterality: left Lung location: unspecified part of lung Qualified Code(s): J18.9 - Pneumonia, unspecified organism Narrative: improving clinically. SOB/rales likely due to fluid overload. will stio his IVF, give IV lasix and restart his honme oral lasix. (3) Septic shock Problem: Resolved (4) Leukocytosis Problem: Acute Narrative: improved to 11.7 (5) Lactic acidosis Problem: Resolved (6) Abnormal arterial blood gases Problem: Acute (7) Chronic obstructive lung disease Problem: Chronic (8) Low back pain Problem: Chronic (9) Barretts esophagus Problem: Chronic Qualifiers: (10) Hyperlipidemia Problem: Chronic Qualifiers: (11) Diabetes mellitus Problem: Chronic Qualifiers: (12) Anemia Problem: Acute Narrative: stable.
[2018-10-22] MEDS: ENOXAPARIN SODIUM 40 MG/0.4 ML SYRG SC SCH (15:03)
[2018-10-22] MEDS: DOCUSATE SODIUM 100 MG CAPSULE PO SCH (22:03)
[2018-10-22] MEDS: MONTELUKAST SODIUM 10 MG TABLET PO SCH (22:04)
[2018-10-22] MEDS: INSULIN GLARGINE,HUM.REC.ANLOG 100 UNITS/ML VIAL SC SCH (22:04)
[2018-10-23] MEDS: VANCOMYCIN HCL 1 GM in DEXTROSE 5 % IN WATER 250 ML IV SCH ×2 (00:37)
[2018-10-23 05:57] LABS: Hematocrit 32.1 % (42.0-52.0); Mean Cell Volume 87.7 fl (78-100); Mean Corpuscular Hemoglobin 27.3 pg (27-31); Mean Corpuscular Hgb Conc 31.2 g/dl (32-36); Mean Platelet Volume 8.9 fl (8-11.3); Neutrophil # 6.7 K/mm3 (1.3-6.0); Neutrophil % 69.7 % (42-75.0); Platelet Count 380 K/mm3 (150-450); Red Blood Count 3.66 M/mm3 (4.7-6.0); Red Cell Distribution Width 15.2 % (11.5-14.0); White Blood Count 9.6 K/mm3 (4.0-10.5)
[2018-10-23] MEDS: BUDESONIDE 0.5 MG/2 ML VIAL.NEB IH SCH (06:02)
[2018-10-23] MEDS: ALBUTEROL SULFATE 2.5 MG/0.5 ML VIAL.NEB IH PRN (06:02)
[2018-10-23 06:06] LABS: BUN/Creatinine Ratio 14.9 (9.0-21.6); Estimated Creat Clear 75.4; Potassium 3.9 mmol/L (3.4-4.6)
[2018-10-23 06:07] LABS: Anion Gap 9.4 mmol/L (6.8-13.8); Calcium * 8.9 mg/dL (7.9-10.9); Carbon Dioxide 32.5 mmol/L (24-32.6)
[2018-10-23] MEDS: INSULIN LISPRO 100 UNITS/ML VIAL SC SCH (06:52)
[2018-10-23] MEDS ORDERED: FORMOTEROL FUMARATE 20 MCG/2 ML VIAL IH SCH (07:00)
[2018-10-23] MEDS: FOLIC ACID 1 MG TABLET PO SCH (08:03)
[2018-10-23] MEDS: TIOTROPIUM BROMIDE 5 CAP INHALER IH SCH (08:03)
[2018-10-23] MEDS: predniSONE 10 MG TABLET PO SCH (08:03)
[2018-10-23] MEDS: LORATADINE 10 MG TABLET PO SCH (08:03)
[2018-10-23] MEDS: FERROUS SULFATE 325 MG TABLET PO SCH (08:03)
[2018-10-23] MEDS: SACCHAROMYCES BOULARDII 250 MG CAPSULE PO SCH (08:03)
--- NOTE | 2018-10-23 08:51 | DS ---
(1) Pneumonia Problem: Acute Qualifiers: Pneumonia type: due to unspecified organism Laterality: left Lung location: unspecified part of lung Qualified Code(s): J18.9 - Pneumonia, unspecified organism (2) Fluid overload Problem: Resolved (3) Septic shock Problem: Resolved (4) Leukocytosis Problem: Resolved (5) Lactic acidosis Problem: Resolved (6) Abnormal arterial blood gases Problem: Acute (7) Chronic obstructive lung disease Problem: Chronic (8) Low back pain Problem: Chronic (9) Barretts esophagus Problem: Chronic Qualifiers: (10) Hyperlipidemia Problem: Chronic Qualifiers: (11) Diabetes mellitus Problem: Chronic Qualifiers: (12) Anemia Problem: Chronic Date of Discharge:: 10/23/18 Description of Stay: Alejandro Diaz is a 78-year-old white male with past medical history of COPD, Hypertension, diabetes mellitus, Tate's esophagus who was admitted on 10/19/19 because of increasing shortness of breath. The patient woke up early on the morning of admission because of shortness of breath and left flank pain associated with shakiness and diaphoresis. 3 weeks ago patient was seen in the office because of low back pain with radiation to his left flank area and x-ray of his lumbosacral spine showed degenerative disc disease with gallbladder stone. An ultrasound of his gallbladder showed no evidence of cholelithiasis or acute cholecystitis. In the emergency room he was found to be hypotensive and hypoxic. He was placed on nasal cannula with 3 L and IV fluid boluses were started. A CT angiogram was done which showed no evidence of aneurysm. His white blood cell count was elevated at 27,000 and his chest x-ray showed multifocal pneumonia left lung field. The patient was given 1 dose of IV Rocephin after blood cultures were sent. He was admitted and was started on IV cefepime and Vanco . He was also started on Azithromycin . His WBC improved and normalized on the 5 th day of his antibiotics. His lactic acidosis resolved with IVF/IV antibiotics but he got fluid overloead and his lasix was restarted. His metformin, which was on hold, will be restarted on discharge. Procedures Performed: none Results and Findings: Pending Mircobiology Results 10/18/18 11:30 Blood Blood Culture - Preliminary NO GROWTH AFTER 48 HOURS 10/18/18 10:23 Blood Blood Culture - Preliminary NO GROWTH AFTER 48 HOURS Lab Pending Results 10/18/18 09:22: WBC 27.4 H, RBC 4.63 L, Hgb 12.6 L, Hct 40.7 L, MCV 87.9, MCH 27.2, MCHC 31.0 L, RDW 14.5 H, Plt Count 407, MPV 8.8, Neutrophils % (Manual) 78 H, Band Neuts % (Manual) 11 H, Lymphocytes % (Manual) 8 L, Monocytes % (Manual) 1, Immature Granulocytes 1, Neutrophils # (Manual) 21.4 H, Lymphocytes # (Manual) 2.2, Monocytes # (Manual) 0.3, Atypic/Reactive Lymphs 1, Platelet Estimate Normal, RBC Morphology Normal 10/18/18 09:22: Sodium 137, Plasma Sodium 138, Potassium 3.6, Chloride 99, Carbon Dioxide 28.4, Anion Gap 13.2, BUN 13, Creatinine 1.18, Est GFR (Non-Af Amer) 64 D, BUN/Creatinine Ratio 11.0, Random Glucose 168 H, Calcium 8.7, Calcium Adj for Albumin 8.9, Total Bilirubin 0.6, AST 10, ALT 6 L, Alkaline Phosphatase 53, Troponin I Less than 0.017, Total Protein 6.1 L, Albumin 3.3 L, Amylase 24 L, Lipase 95 10/18/18 09:22: Lactic Acid, Venous 3.5 H* 10/18/18 12:13: pCO2 46.3, pO2 91.2, HCO3 21.2, Total CO2 22.6, Base Excess -5.5 L, ABG pH 7.28 L, ABG O2 Sat (Measured) 96.0 10/18/18 12:19: Lactic Acid, Venous 4.4 H* 10/18/18 13:39: Urine Color Yellow, Urine Appearance Clear, Urine pH 5.0, Ur Specific [place] <=1.005, Urine Protein Negative, Urine Glucose (UA) Negative, Urine Ketones Negative, Urine Blood Negative, Urine Nitrate Negative, Urine Bilirubin Negative, Urine Urobilinogen Normal, Ur Leukocyte Esterase Negative, Urine RBC None seen, Urine WBC None seen, Ur Epithelial Cells None seen, Urine Bacteria None seen, Urine Culture Comments No culture indicated 10/18/18 13:39: Urine Opiates Screen Negative, Barbiturate Screen Negative, Ur Phencyclidine Scrn Negative, Urine Amphetamine Negative, U Benzodiazepines Scrn Negative, Urine Cocaine Screen Negative, Urine Marijuana (THC) Negative 10/19/18 05:10: WBC 27.2 H, RBC 3.52 L, Hgb 9.8 L, Hct 31.0 L, MCV 88.1, MCH 27.8, MCHC 31.6 L, RDW 14.7 H, Plt Count 291, MPV 8.9, Neutrophils % (Manual) 88 H, Band Neuts % (Manual) 5 H, Lymphocytes % (Manual) 3 L, Monocytes % (Manual) 2, Immature Granulocytes 2 H, Neutrophils # (Manual) 23.9 H, Lymphocytes # (Manual) 0.8 L, Monocytes # (Manual) 0.5, Platelet Estimate Normal, RBC Morphology Normal 10/19/18 05:10: Sodium 140, Plasma Sodium 140, Potassium 4.2, Chloride 105, Carbon Dioxide 25.9, Anion Gap 13.3, BUN 14, Creatinine 0.88, Est GFR (Non-Af Amer) 89 D, BUN/Creatinine Ratio 15.9, Random Glucose 120 H, Calcium 7.8 L 10/19/18 05:10: Iron 11 L, TIBC 259 L, Transferrin % Sat 4 L 10/19/18 05:10: Ferritin 56, Vitamin B12 496, Folate 5.1 L 10/19/18 05:10: Transferrin 215 10/19/18 08:15: Lactic Acid, Venous 3.3 H* 10/20/18 05:53: WBC 17.2 H D, RBC 3.49 L, Hgb 9.5 L, Hct 30.7 L, MCV 88.0, MCH 27.2, MCHC 30.9 L, RDW 15.3 H, Plt Count 309, MPV 8.9, Immature Gran % (Auto) 0.50 H, Immature Gran # (Auto) 0.09 H, Neutrophils % 86.7 H, Lymphocytes % 5.7 L, Monocytes % 5.9, Eosinophils % 0.9, Basophils % 0.3, Nucleated RBC % 0.0, Neutrophils # 14.9 H, Lymphocytes # 0.97 L, Monocytes # 1.0, Eosinophils # 0.2, Absolute Basophils 0.1 10/20/18 05:53: Sodium 139, Plasma Sodium 140, Potassium 3.9, Chloride 106, Carbon Dioxide 25.7, Anion Gap 11.2, BUN 9, Creatinine 0.80, Est GFR (Non-Af Amer) 100, BUN/Creatinine Ratio 11.3, Random Glucose 133 H, Calcium 8.5 10/20/18 09:30: Stool Occult Blood Negative 10/20/18 13:27: Vancomycin Trough 37.1 H 10/20/18 23:30: Vancomycin Trough 14.6 10/21/18 07:03: WBC 14.3 H, RBC 3.60 L, Hgb 9.9 L, Hct 31.5 L, MCV 87.5, MCH 27.5, MCHC 31.4 L, RDW 15.2 H, Plt Count 318, MPV 8.6, Immature Gran % (Auto) 0.60 H, Immature Gran # (Auto) 0.08 H, Neutrophils % 83.3 H, Lymphocytes % 5.9 L, Monocytes % 7.5, Eosinophils % 2.3, Basophils % 0.4, Nucleated RBC % 0.0, Neutrophils # 11.9 H, Lymphocytes # 0.84 L, Monocytes # 1.1 H, Eosinophils # 0.3, Absolute Basophils 0.1 10/21/18 07:03: Sodium 140, Plasma Sodium 140, Potassium 3.7, Chloride 103, Carbon Dioxide 27.9, Anion Gap 12.8, BUN 7, Creatinine 0.73, Est GFR (Non-Af Amer) 111, BUN/Creatinine Ratio 9.6, Random Glucose 117 H, Calcium 9.1, Calcium Adj for Albumin 9.8, Total Bilirubin 0.6, AST 11, ALT 7 L, Alkaline Phosphatase 59, Total Protein 6.1 L, Albumin 2.7 L 10/22/18 06:50: WBC 11.7 H, RBC 3.56 L, Hgb 9.9 L, Hct 31.2 L, MCV 87.6, MCH 27.8, MCHC 31.7 L, RDW 15.4 H, Plt Count 360, MPV 9.1, Immature Gran % (Auto) 1.00 H, Immature Gran # (Auto) 0.12 H, Neutrophils % 75.9 H, Lymphocytes % 8.6 L, Monocytes % 11.2 H, Eosinophils % 3.0, Basophils % 0.3, Nucleated RBC % 0.0, Neutrophils # 8.9 H, Lymphocytes # 1.00 L, Monocytes # 1.3 H, Eosinophils # 0.4, Absolute Basophils 0.0 10/22/18 06:50: Lactic Acid, Venous 1.0 10/22/18 11:30: Vancomycin Trough 16.5 10/23/18 05:30: WBC 9.6, RBC 3.66 L, Hgb 10.0 L, Hct 32.1 L, MCV 87.7, MCH 27.3, MCHC 31.2 L, RDW 15.2 H, Plt Count 380, MPV 8.9, Immature Gran % (Auto) 1.30 H, Immature Gran # (Auto) 0.13 H, Neutrophils % 69.7, Lymphocytes % 10.7 L, Monocytes % 13.6 H, Eosinophils % 4.3 H, Basophils % 0.4, Nucleated RBC % 0.0, Neutrophils # 6.7 H, Lymphocytes # 1.03 L, Monocytes # 1.3 H, Eosinophils # 0.4, Absolute Basophils 0.0 10/23/18 05:30: Sodium 140, Plasma Sodium 140, Potassium 3.9, Chloride 102, Carbon Dioxide 32.5, Anion Gap 9.4, BUN 11 D, Creatinine 0.74, Est GFR (Non-Af Amer) 109, BUN/Creatinine Ratio 14.9, Random Glucose 110, Calcium 8.9 Discharge Location: Home Disposition: Home self-care Condition: Stable Discharge Activity: Activity as tolerated Discharge Diet: Consistent carbs Referrals: Amanda Herr MD [Primary Care Provider] - Additional Patient Instructions (free text): -Please make TCM appointment unless senior living discharge, or if following up with outside provider. Thank you! Susan @ [phone] or Latisha at [phone]. Follow up with PCP in 1 week. Complete Home Medications List: Complete Home Medication List: albuterol sulfate HFA 90 mcg/actuation aerosol inhaler 2 puff IH Q4H PRN g 09/12/17 blood sugar diagnostic strips See Dose Instructions .ROUTE .MEDSUPPLY #20 ea 09/12/17 budesonide 0.5 mg/2 mL suspension for nebulization 2 ml IH Q12H 09/12/17 furosemide 20 mg tablet 20 mg PO Q48H 09/12/17 ipratropium-albuterol 0.5 mg-3 mg(2.5 mg base)/3 mL nebulization soln 3 ml IH QID PRN 09/12/17 lisinopril 2.5 mg tablet 2.5 mg PO DAILY 09/12/17 sodium chloride 1 gram tablet 1 tab PO BID tab 09/12/17 tiotropium 2.5 mcg-olodaterol 2.5 mcg/actuation mist for inhalation 2 puff IH DAILY 09/12/17 Montelukast Sodium [Singulair] 10 mg PO HS 09/25/17 omeprazole 40 mg capsule,delayed release 40 mg PO DAILY #90 cap 01/23/18 O2 See Dose Instructions .ROUTE .MEDSUPPLY #1 ea 02/15/18 albuterol sulfate 2.5 mg/3 mL (0.083 %) solution for nebulization 2.5 mg IH QID PRN 02/15/18 cetirizine 10 mg tablet 10 mg PO DAILY PRN 02/15/18 fluticasone propionate 50 mcg/actuation nasal spray,suspension 1 spray RADHA DAILY PRN #16 g 02/15/18 guaifenesin ER 600 mg tablet, extended release 12 hr 1,200 mg PO Q12H PRN tab 02/15/18 sodium chloride 7 % for nebulization 4 ml NEB BID ml 02/15/18 lancets See Dose Instructions .ROUTE .MEDSUPPLY #200 ea 05/30/18 Potassium Chloride [Klor-Con 10] 10 meq PO Q48H 10/18/18 metFORMIN HCL [Metformin HCl] 500 mg PO BID 10/18/18 Azithromycin [Zithromax Tri-Renan] 500 mg PO MOTUWETHFR 10/19/18 predniSONE [Prednisone] 10 mg PO DAILY 10/19/18 Ferrous Sulfate 325 mg PO DAILY #30 tab 10/23/18 Folic Acid 1 mg PO DAILY #30 tab 10/23/18 Levofloxacin [Levaquin] 750 mg PO DAILY #4 tab 10/23/18
[2018-10-23] MEDS ORDERED: ERGOCALCIFEROL 50000 UNIT TABLET PO SCH (09:00)
[2018-10-23] MEDS: ACETAMINOPHEN 325 MG TABLET PO PRN (09:04)
[2018-10-23 10:35] VITALS: BP 138/63
[2018-10-23] MEDS ORDERED: LEVOFLOXACIN 750 MG TABLET PO SCH (11:00)
== END 2018-10-23 10:45 | disposition home or self-care (01) | DRG 871 ==
LOC: ER 08:56 → MS 11:25
PROVIDERS: ADMIT Internal Medicine; ATTEND Internal Medicine
DX: R65.21 Severe sepsis with septic shock; J18.9 Pneumonia, unspecified organism; J96.02 Acute respiratory failure with hypercapnia; A41.9 Sepsis, unspecified organism; J44.9 Chronic obstructive pulmonary disease, unspecified; R10.32 Left lower quadrant pain; Z79.84 Long term (current) use of oral hypoglycemic drugs; K22.70 Barrett's esophagus without dysplasia; Z87.891 Personal history of nicotine dependence; R79.81 Abnormal blood-gas level; E78.5 Hyperlipidemia, unspecified; E87.70 Fluid overload, unspecified; D64.9 Anemia, unspecified; E87.4 Mixed disorder of acid-base balance; E11.9 Type 2 diabetes mellitus without complications; Z99.81 Dependence on supplemental oxygen
CPT/HCPCS: 36415; 36600; 71010; 71020; 71045; 71046; 71275; 74175; 76705; 80048; 80053; 80202; 80307; 81001; 82150; 82272; 82607; 82728; 82746; 82803; 83540; 83550; 83605; 83690; 84466; 84484; 85007; 85025; 87040; 93005; 94640; 94664; 96374; 96375; 99285; Q9967